=== PATIENT | male | born 1995 | race Caucasian/White ===

== ENCOUNTER 2017-01-21 01:03 | Emergency (ER) | payer OTHER ==
[2017-01-21 01:10] VITALS: TEMP 36.5
[2017-01-21 01:36] VITALS: O2SAT 99
[2017-01-21 01:55] LABS: BLOOD UREA NITROGEN 10 mg/dl (7-18); BUN/CREATININE RATIO 9.7 (10-20); CALCIUM 8.8 mg/dl (8.5-10.1); CARBON DIOXIDE 28 mmol/L (21-32); CHLORIDE 109 mmol/L (98-107); GLUCOSE 109 mg/dl (70-99); SODIUM 143 mmol/L (136-145)
--- NOTE | 2017-01-21 06:37 | EMERGENCY ROOM VISIT NOTE ---
History First contact with patient: 01:12 Chief Complaint: ALCOHOL OVERDOSE Stated Complaint: ALCOHOL Nursing Triage Summary: Was found stumbling around in a parking garage by an EMT, EMS reports pt could not answer basic questions. History of Present Illness The patient is a 21 year old male who presents to the Emergency Room with complaints of alcohol intoxication. Patient was found stumbling in the parking garage and EMS was summoned. Patient states he had a lot of alcohol. No drugs. Patient denies fall, chest pain, dyspnea, abdominal pain or any other medical complaints. Review of Systems See HPI for pertinent positives & negatives. A total of 10 systems reviewed and were otherwise negative. Past Medical/Surgical History None Social History Smoking Status: Current Every Day Smoker Alcohol Use: occasionally Drug Use: none Occupation Status: [employer] student Current/Historical Medications Unable to Obtain Active Prescriptions or Reported Meds Physical Exam Vital Signs Date Time Temp Pulse Resp B/P (MAP) Pulse Ox O2 Delivery O2 Flow Rate FiO2 01/21/17 06:00 87 12 108/59 97 01/21/17 05:46 79 01/21/17 05:00 80 12 104/58 92 Room Air 01/21/17 04:00 83 12 104/67 92 Room Air 01/21/17 03:00 78 12 99/54 92 Room Air 01/21/17 02:00 90 18 117/68 93 Room Air 01/21/17 01:36 99 Room Air 01/21/17 01:31 107 18 117/72 99 Room Air 01/21/17 01:17 112 01/21/17 01:10 36.5 112 22 99 Room Air Physical Exam PHYSICAL EXAM: VITALS: Vitals are noted on the nurse's note and reviewed by myself. Vital signs stable. GENERAL: Intoxicated male with EtOH odor, in no acute distress, nondiaphoretic, well-developed well-nourished. The patient is visibly intoxicated. SKIN: The skin was without obvious lacerations, abrasions, or rashes. There is no tenting of the skin. Capillary reflex less than 2 seconds. HEENT: Normocephalic, atraumatic. PERRLA. EOMI. Conjunctiva with mild injection without icterus. Tympanic membranes without erythema or effusion bilaterally no hemotympanum. External auditory canals are clear. Nares patent bilaterally. No epistaxis. Oropharynx without erythema or exudate. Uvula midline. Oral mucosal moist. No lymphadenopathy. Neck is supple without cervical spine tenderness. HEART: Regular rate and rhythm without murmurs gallops or rubs. Peripheral pulses 2+. LUNGS: Clear to auscultation bilaterally without wheezes, rales or rhonchi. ABDOMEN: Positive bowel sounds x 4. Normal tympanic percussion. Soft, nontender, without masses or organomegaly. MUSCULOSKELETAL: Gross motor function of the upper and lower extremities intact. The patient has a staggering gait. NEUROLOGIC: The patient is visibly intoxicated. Once they were more sober they were alert and oriented to person place and time. Medical Decision & Procedures Laboratory Results 01/21/17 01:27 Test 01/21/17 01:27 Anion Gap 6.0 mmol/L (3-11) Estimated GFR () 125.0 Estimated GFR (Non- 107.9 BUN/Creatinine Ratio 9.7 (10-20) Calcium Level 8.8 mg/dl (8.5-10.1) Ethyl Alcohol mg/dL 346.0 mg/dl (0-3) ED Course Prior records/ancillary studies reviewed. Triage Nursing notes reviewed. Additional history obtained from nursing. The patient's history was concerning for altered mental status and a possible alcohol overdose. Differential diagnosis: Etiologies such as alcohol intoxication, toxicologic, infection, hypoglycemia, electrolyte abnormalities, cardiac sources, intracerebral event, neurologic, as well as others were entertained. Physical examination: As above. The patient is clinically intoxicated. no trauma noted. ER treatment provided: Monitoring Aspiration precautions The patient was frequently reassessed. Diagnostic interpretation by me: Cardiac monitoring did not reveal any evidence of dysrhythmia. The labs revealed no worrisome electrolyte abnormality. The patient's blood alcohol level was 348 mg/dL. The patient's history was reviewed once they were more coherent and their intoxication cleared. The patient states they have been in good health recently and had no medical complaints. The patient admitted to consuming alcohol. No additional concerning findings were noted. The patient complained of no symptoms to suggest assault. This appears to be consistent with an isolated overdose of alcohol. By the evaluation outlined above emergent etiologies such as trauma, infection, hypoglycemia, electrolyte abnormalities, cardiac sources, intracerebral event, neurologic,as well as others were deemed relatively unlikely. The patient was informed about the findings as listed above. The patient was counseled on the dangers of excessive alcohol use. I gave my usual and customary discussion regarding this issue. All questions were answered and the patient was pleased with the treatment. Return instructions were outlined and the patient was discharged in stable condition once their mental status improved and a safe destination was confirmed. Outpatient prescription management: None Referral: The patient was referred back to their primary care physician for follow-up in 2 to 3 days for a recheck of their current condition. Medical Decision As above Medication Reconcilliation Current Medication List: was personally reviewed by me Blood Pressure Screening Patient's blood pressure: Normal blood pressure Impression Primary Impression: Alcohol overdose Departure Information Dispostion Home / Self-Care Condition GOOD Prescriptions Unable to Obtain Active Prescriptions or Reported Meds Referrals No Doctor, Assigned (PCP) Forms HOME CARE DOCUMENTATION FORM, IMPORTANT VISIT INFORMATION Patient Instructions My [facility] Additional Instructions Keep well-hydrated. Tylenol every 6 hours as needed for pain (Maximum 3000 mg Tylenol in 24 hr period). Follow up with family doctor and/or health services as needed. No driving for the next 24 hours. Recommend no alcohol for the next 48 hours and avoid binge drinking in the future. Return to ER sooner for chest pain, abdominal pain, worsening signs or symptoms or as needed. Problem Qualifiers Primary Impression: Alcohol overdose Encounter type: initial encounter Injury intent: accidental or unintentional Qualified Codes: T51.91XA - Toxic effect of unspecified alcohol , accidental (unintentional), initial encounter
[2017-01-21 06:50] VITALS: BP 123/94; PULSE 110; O2SAT 99
== END 2017-01-21 06:56 | disposition home or self-care (01) ==
LOC: EDBD 01:03 → C.EDB 01:04
DX: T51.0X1A Toxic effect of ethanol, accidental (unintentional), initial encounter (principal); F17.210 Nicotine dependence, cigarettes, uncomplicated; Y90.8 Blood alcohol level of 240 mg/100 ml or more

== ENCOUNTER 2018-01-21 23:35 | Emergency (ER) | payer OTHER ==
[~2018-01-21] VITALS: Ht 190.5 cm; Wt 69.2 kg
[2018-01-21 23:46] VITALS: TEMP 36.8; Ht 190.5 cm; Wt 69.2 kg
[2018-01-22 00:56] LABS: CALCIUM 8.2 mg/dl (8.5-10.1); CREATININE 0.91 mg/dl (0.60-1.40); POTASSIUM 3.5 mmol/L (3.5-5.1)
[2018-01-22] MEDS ORDERED: LORAZEPAM 2 MG/ML 1 ML VIAL IM STA (02:43)
[2018-01-22] MEDS ORDERED: HALOPERIDOL LACTATE 5 MG/ML 1 ML VIAL IM STA (02:43)
[2018-01-22] MEDS ORDERED: BENZTROPINE MESYLATE 1 MG/ML 2 ML AMP IM STA (02:43)
[2018-01-22] MEDS ORDERED: HALOPERIDOL LACTATE 5 MG/ML 1 ML VIAL ONE (02:45)
[2018-01-22] MEDS ORDERED: LORAZEPAM 2 MG/ML 1 ML VIAL ONE (02:45)
--- NOTE | 2018-01-22 03:08 | EMERGENCY ROOM VISIT NOTE ---
History Report prepared by [place]: Kyleigh Tamayo Under the Supervision of: Dr. Titus Villauneva M.D. First contact with patient: 23:37 Chief Complaint: ALCOHOL OVERDOSE Stated Complaint: ALCOHOL Nursing Triage Summary: Pt presents bls for evlauation of etoh overdose. Found by friend unconcious. Abrasions to left elbow and knee. Pt thinks he may have fell and hit head. History of Present Illness The patient is a 22 year old male who presents to the Emergency Room with complaints of an episode of alcohol overdose that occurred just prior to arrival. Per EMS, patient was drinking alcohol at a friend's apartment when he fell and lost consciousness. The patient states that he does not remember what happened. The patient notes that the abrasion to his left knee was there prior to the episode. HPI limited by intoxication. Source of History: EMS History Limited By: intoxication Onset: just prior to arrival Position: other (generalized) Quality: other (alcohol overdose) Timing: other (episode) Associated Symptoms: + LOC Note: Additional symptoms: abrasion to left knee Review of Systems See HPI for pertinent positives & negatives. A total of 10 systems reviewed and were otherwise negative. Past Medical & Surgical Medical Problems: (1) No Known Active Medical Problems Family History No pertinent family history Social History Smoking Status: Never Smoker Alcohol Use: occasionally Drug Use: none Marital Status: single Occupation Status: [employer] student Current/Historical Medications No Active Prescriptions or Reported Meds Allergies Coded Allergies: No Known Allergies (Unverified , 01/21/18) Physical Exam Vital Signs Date Time Temp Pulse Resp B/P (MAP) Pulse Ox O2 Delivery O2 Flow Rate FiO2 01/22/18 11:24 80 16 117/74 98 01/22/18 09:30 74 16 97 Room Air 01/22/18 08:48 73 01/22/18 08:20 74 16 85/54 96 Room Air 01/22/18 07:20 96 16 98 Room Air 01/22/18 05:46 76 18 90/48 97 Room Air 01/22/18 04:28 82 18 128/88 97 Room Air 01/22/18 03:43 78 01/22/18 02:22 88 18 121/81 97 Room Air 01/21/18 23:46 Room Air 01/21/18 23:46 36.8 95 18 153/77 97 Room Air 01/21/18 23:46 Room Air Physical Exam Vital signs reviewed. General: Odor of EtOH in the breath, disheveled 22-year-old male. No signs of trauma. HEENT: Mild scleral injection bilaterally, PERRLA, neck supple, dry mucous membranes. Cardiovascular: Regular rate and rhythm, no extra sounds. Pulmonary: Clear to auscultation bilaterally, normal work of breathing. Abdomen: Soft, nontender, nondistended, positive bowel sounds. Musculoskeletal: Upper and lower extremities atraumatic, no peripheral edema Skin: Warm, dry, no rash. Atraumatic. Neurologic: Patient is currently nonverbal. Medical Decision & Procedures ER Provider Diagnostic Interpretation: Radiology results as stated below per my review and radiologist interpretation: CT HEAD WITHOUT CONTRAST (CT) CLINICAL HISTORY: Altered mental status COMPARISON STUDY: No previous studies for comparison. TECHNIQUE: Axial CT of the brain is performed from the vertex to the skull base. IV contrast was not administered for this examination. A dose lowering technique was utilized adhering to the principles of ALARA. CT DOSE: 1151.75 mGy.cm FINDINGS: No intra or extra-axial mass lesions are visualized. There is no CT evidence of acute cortical infarction. There is no evidence of midline shift. There is no acute hemorrhage. No calvarial fractures are visualized. There is no evidence of pathologic ventricular dilatation. There is no evidence of acute sinusitis IMPRESSION: Normal noncontrast head CT. Electronically signed by: Yony Leslie M.D. 01/22/2018 6:39 AM Dictated Date/Time: 01/22/2018 6:39 AM Laboratory Results 01/22/18 00:06 Test 01/22/18 00:06 01/22/18 02:29 Anion Gap 8.0 mmol/L (3-11) Est Creatinine Clear Calc Drug Dose 125.7 ml/min Estimated GFR () 139.1 Estimated GFR (Non- 120.0 BUN/Creatinine Ratio 6.4 (10-20) Calcium Level 8.2 mg/dl (8.5-10.1) Ethyl Alcohol mg/dL 287.0 mg/dl (0-3) Labs reviewed by ED physician. Medications Administered Medications (Trade) Dose Ordered Sig/Evelio Route Start Time Stop Time Status Last Admin Dose Admin Haloperidol Lactate (Haldol Inj) 10 mg NOW STAT IM 01/22/18 02:43 01/22/18 02:46 DC 01/22/18 02:50 10 MG Lorazepam (Ativan Inj) 2 mg NOW STAT IM 01/22/18 02:43 01/22/18 02:46 DC 01/22/18 02:49 2 MG Benztropine Mesylate (Cogentin Inj) 2 mg NOW STAT IM 01/22/18 02:43 01/22/18 02:46 DC 01/22/18 02:51 2 MG ED Course 2337: Past medical records reviewed. The patient was evaluated in room B3A. A complete history and physical examination was performed. 0212: I checked on the patient and he demanded to have his blood alcohol drawn again. I asked to call the patient's parents, but the patient refused. 0240: I reevaluated the patient and he states that he wants his cell phone. However, the patient's cell phone is not present with him at the hospital. 0330: Upon reexamination the patient is resting. I discussed results and treatment plan with the patient. He verbalizes agreement and understanding. The patient is ready for discharge. Medical Decision Etiologies such as alcohol intoxication, toxicologic, infection, hypoglycemia, electrolyte abnormalities, cardiac sources, intracerebral event, neurologic, as well as others were entertained. This is a 22-year-old male who presents emergency department after falling and hitting his head. The patient was knocked unconscious and his friends were concerned enough to call EMS. The patient arrives during a period of high volume and high acuity during single provider coverage. Patient was found by police to turn the patient over to EMS. Upon arrival to the emergency department the patient is clinically intoxicated. He is babbling and unable to make sense. He tells me he is from [place] but is unable to recall his high school. I strongly recommended we call this patient's parents however he is adamantly refusing. Based on the patient's history of falling hitting his head being knocked unconscious and his intoxicated state I strongly recommended to the patient we obtain a CAT scan of his head. The patient did agree to this. He was found to have no acute cranial injury. The patient arrived without a cell phone however he keeps asking for his self. He was placed on the ekg monitor tech on his bed however he became uncooperative and belligerent in the emergency department. I will note that this occurred during a period of high volume and high acuity. I verbally try to de-escalate the patient multiple times and offered to call his parents to come pick him up. The patient is demanding a repeat alcohol level be obtained. I tried to explain to the patient that his blood alcohol level was going to be 290 (only 2 hours after he arrived) however he demanded it be redrawn so it was. I will note that I cannot release this patient with an alcohol level so high as he is already proven to be a danger to himself. The patient continued to be a disturbance to other patients in the emergency department as well as his nurse and security. I tried a third time again to verbally de-escalate the patient however he refused. At this point he was given 10 mg of Haldol as well as 2 mg of Ativan and Cogentin to sedate him to protect him and to protect other patients in the emergency department. I will note that the patient is risking a catastrophe during a period of high volume and high acuity. He was placed on the ekg monitor tech and continuous pulse oximetry was obtained. The patient was frequently reassessed and evaluated throughout the evening. After some time the patient's alcohol level did clear. I strongly recommended that the patient discuss this visit with his parents. Head Trauma GCS Score: 14 Medication Reconcilliation Current Medication List: was personally reviewed by me Impression Primary Impression: Alcohol intoxication Critical Care I have personally spent greater than 30 minutes of critical care time in the direct management of this patient. This includes bedside care, interpretation of diagnostic studies, and testing, discussion with consultants, patient, and family members, and other required patient management activities. This 30 minutes is in excess of all separately billable procedures. Scribe Attestation The scribe's documentation has been prepared under my direction and personally reviewed by me in its entirety. I confirm that the note above accurately reflects all work, treatment, procedures, and medical decision making performed by me. Departure Information Dispostion Home / Self-Care Prescriptions No Active Prescriptions or Reported Meds Referrals No Doctor, Assigned (PCP) Forms HOME CARE DOCUMENTATION FORM, IMPORTANT VISIT INFORMATION Patient Instructions My [facility] Additional Instructions STRONGLY encourage you to discuss this visit with your parents! ANISH= .330 @ Midnight, .290 @ 0230 sober @ noon If having neurologic reactions to Haldol, take Benadryl 50 mg every 6 hours You have been examined and treated today on an emergency basis only. This is not a substitute for, or an effort to provide, complete comprehensive medical care. It is impossible to recognize and treat all injuries or illnesses in a single emergency department visit. It is therefore important that you follow up closely with [facility]. Call as soon as possible for an appointment. Thank you for your time and consideration. I look forward to speaking with you again soon. Please don't hesitate to call us if you have any questions. Problem Qualifiers Primary Impression: Alcohol intoxication Complication of substance-induced condition: uncomplicated Qualified Codes: F10.920 - Alcohol use, unspecified with intoxication, uncomplicated
--- NOTE | 2018-01-22 06:41 | DIAGNOSTIC IMAGING REPORT ---
CT HEAD WITHOUT CONTRAST (CT) CLINICAL HISTORY: Altered mental status COMPARISON STUDY: No previous studies for comparison. TECHNIQUE: Axial CT of the brain is performed from the vertex to the skull base. IV contrast was not administered for this examination. A dose lowering technique was utilized adhering to the principles of ALARA. CT DOSE: 1151.75 mGy.cm FINDINGS: No intra or extra-axial mass lesions are visualized. There is no CT evidence of acute cortical infarction. There is no evidence of midline shift. There is no acute hemorrhage. No calvarial fractures are visualized. There is no evidence of pathologic ventricular dilatation. There is no evidence of acute sinusitis IMPRESSION: Normal noncontrast head CT. Electronically signed by: Yony Leslie M.D. 01/22/2018 6:39 AM Dictated Date/Time: 01/22/2018 6:39 AM
[2018-01-22 11:24] VITALS: BP 117/74; PULSE 80; O2SAT 98
== END 2018-01-22 11:05 | disposition home or self-care (01) ==
LOC: EDBD 23:35 → C.EDB 23:36
DX: F10.929 Alcohol use, unspecified with intoxication, unspecified (principal); Y90.8 Blood alcohol level of 240 mg/100 ml or more; S80.212A Abrasion, left knee, initial encounter; W19.XXXA Unspecified fall, initial encounter